=== PATIENT | male | born 2000 | race Caucasian/White ===

== ENCOUNTER 2020-10-07 10:42 | Emergency (ER) | payer OTHER, SELFPAY ==
[2020-10-07] MEDS ORDERED: Ketorolac Tromethamine 30 MG/ML VIAL ONE (11:18)
[2020-10-07] MEDS ORDERED: Ondansetron ODT 4 MG TAB ONE (11:22)
[2020-10-07 17:58] LABS: SARS-CoV-2 PCR by NAA Not Detected (NotDetected)
== END 2020-10-07 13:14 | disposition home or self-care (01) ==
LOC: ERS 10:42
DX: J18.9 Pneumonia, unspecified organism (principal); Z20.822 Contact with and (suspected) exposure to COVID-19
CPT/HCPCS: 71045; 87635; 96372; J1885; Q0162; U0003; U0005